=== PATIENT | male | born 1945 | race Caucasian/White ===

== ENCOUNTER → 2020-09-04 | Emergency (ER) | payer MEDICARE ==
[~2020-09-04] VITALS: Ht 175.3 cm; Wt 98.7 kg
[~2020-09-04] MED LIST: AMIO200T61 PO; APIX5TAB3 PO; BUDE0.5A11 NEB; BUSP5TAB3 PO; CHOL20004 PO; CLON-528 PO; FLO0.4C PO; FURO-150 PO; HYDR-3965 PO; LEVO50TA8 PO; METH5TAB PO; METH5TAB2 PO; RIVA15TA PO; RIVA20TA PO; enoxaparin 100mg/ml syringe SUBCUT ONE; iohexol 350MG/ML 100ml bottle IV ONE; morphine 4 MG/ML inj SYRINge IV ONE; ondansetron/PF 4mg/2ml inj IV ONE
[2020-09-04 14:48] LABS: BASOPHILS # (AUTO) 0.1 X10'3 (0-0.2); BASOPHILS % (AUTO) 0.7 % (0-1); EOSINOPHILS % (AUTO) 0.5 % (0-6); HEMATOCRIT 41.7 % (42.0-52.0); HEMOGLOBIN 13.5 g/dl (14.0-17.9); LYMPHOCYTES # (AUTO) 1.7 X10'3 (1.1-4.8); LYMPHOCYTES % (AUTO) 18.3 % (21-51); MEAN CORPUSCULAR HEMOGLOBIN 28.5 PG (27.0-31.0); MEAN CORPUSCULAR HGB CONC 32.3 g/dL (33.0-36.5); MEAN CORPUSCULAR VOLUME 88.1 FL (78-98); MEAN PLATELET VOLUME 7.8 FL (7.4-10.4); MONOCYTES # (AUTO) 0.6 X10'3 (0-0.9); MONOCYTES % (AUTO) 6.2 % (2-12); NEUTROPHILS # (AUTO) 6.9 X10'3 (1.8-7.7); NEUTROPHILS % (AUTO) 74.3 % (42-75); PLATELET COUNT 253 X10'3 (140-440); RED BLOOD COUNT 4.73 X10'6 (4.70-6.10); RED CELL DISTRIBUTION WIDTH 16.2 % (11.5-14.5); WHITE BLOOD COUNT 9.2 X10'3 (4.5-11.0)
[2020-09-04 14:57] LABS: PARTIAL THROMBOPLASTIN TIME 25 SECONDS (22-32)
[2020-09-04 15:06] LABS: ALANINE AMINOTRANSFERASE 23 U/L (12-78); ALBUMIN 3.4 G/DL (3.4-5.0); ALBUMIN/GLOBULIN RATIO 0.9 (1.1-1.5); ALKALINE PHOSPHATASE 83 IU/L (46-116); ANION GAP 11 (8-16); ASPARTATE AMINO TRANSFERASE 19 U/L (10-37); BILIRUBIN,TOTAL 0.3 MG/DL (0.1-1.0); BLOOD UREA NITROGEN 17 MG/DL (7-18); BUN/CREATININE RATIO 16.7 (5.4-32.0); CALCIUM 8.8 MG/DL (8.5-10.1); CHLORIDE 105 MMOL/L (99-107); CREATININE 1.02 MG/DL (0.60-1.10); GLUCOSE 132 MG/DL (70-104); POTASSIUM 4.3 MMOL/L (3.5-5.1); SODIUM 141 MMOL/L (135-145); TOTAL CARBON DIOXIDE 24.9 MMOL/L (24-32); TOTAL PROTEIN 7.1 G/DL (6.4-8.2); eGFR 71 ML/MIN
[2020-09-04 15:08] LABS: MAGNESIUM 1.8 MG/DL (1.5-2.4)
[2020-09-04 16:12] VITALS: BP 164/96
--- NOTE | 2020-09-04 17:03 | NUR ---
pt getting anxious due to the fact he can't get a hold of his son.
== END | disposition home or self-care (01) ==
LOC: ER 20:43
DX: R07.89 Other chest pain (principal); G89.29 Other chronic pain; Z95.0 Presence of cardiac pacemaker; Z86.711 Personal history of pulmonary embolism; Z79.899 Other long term (current) drug therapy; Z76.0 Encounter for issue of repeat prescription
CPT/HCPCS: 36415; 71045; 71275; 80053; 83735; 83880; 84484; 85025; 85610; 85730; 93005; 96372; 96374; 96375; 96376; 99285; J2270; J2405; Q9967; J1650

== ENCOUNTER 2020-09-07 11:33 | Emergency (ER) | payer MEDICARE ==
[~2020-09-07] VITALS: Ht 175.3 cm; Wt 98.7 kg
[~2020-09-07 11:33] MED LIST changes: -FLO0.4C PO; -METH5TAB PO; -METH5TAB2 PO; -RIVA15TA PO; -enoxaparin 100mg/ml syringe SUBCUT ONE; -iohexol 350MG/ML 100ml bottle IV ONE; -morphine 4 MG/ML inj SYRINge IV ONE; -ondansetron/PF 4mg/2ml inj IV ONE
[2020-09-07 12:37] LABS: BASOPHILS # (AUTO) 0.1 X10'3 (0-0.2); BASOPHILS % (AUTO) 0.6 % (0-1); EOSINOPHILS % (AUTO) 0.2 % (0-6); HEMATOCRIT 40.8 % (42.0-52.0); HEMOGLOBIN 13.1 g/dl (14.0-17.9); LYMPHOCYTES # (AUTO) 1.5 X10'3 (1.1-4.8); LYMPHOCYTES % (AUTO) 12.9 % (21-51); MEAN CORPUSCULAR HEMOGLOBIN 28.5 PG (27.0-31.0); MEAN CORPUSCULAR VOLUME 89.1 FL (78-98); MEAN PLATELET VOLUME 7.9 FL (7.4-10.4); MONOCYTES # (AUTO) 0.6 X10'3 (0-0.9); MONOCYTES % (AUTO) 5.4 % (2-12); NEUTROPHILS # (AUTO) 9.2 X10'3 (1.8-7.7); NEUTROPHILS % (AUTO) 80.9 % (42-75); PLATELET COUNT 280 X10'3 (140-440); RED BLOOD COUNT 4.58 X10'6 (4.70-6.10); RED CELL DISTRIBUTION WIDTH 16.3 % (11.5-14.5); WHITE BLOOD COUNT 11.4 X10'3 (4.5-11.0)
[2020-09-07 12:50] LABS: ALANINE AMINOTRANSFERASE 23 U/L (12-78); ALBUMIN 3.6 G/DL (3.4-5.0); ALKALINE PHOSPHATASE 89 IU/L (46-116); ANION GAP 15 (8-16); ASPARTATE AMINO TRANSFERASE 26 U/L (10-37); BILIRUBIN,TOTAL 0.9 MG/DL (0.1-1.0); BLOOD UREA NITROGEN 11 MG/DL (7-18); BUN/CREATININE RATIO 10.9 (5.4-32.0); CALCIUM 8.8 MG/DL (8.5-10.1); CHLORIDE 101 MMOL/L (99-107); CREATININE 1.01 MG/DL (0.60-1.10); GLUCOSE 190 MG/DL (70-104); POTASSIUM 4.1 MMOL/L (3.5-5.1); SODIUM 140 MMOL/L (135-145); TOTAL CARBON DIOXIDE 23.6 MMOL/L (24-32); TOTAL PROTEIN 7.3 G/DL (6.4-8.2); eGFR 72 ML/MIN
[2020-09-07] MEDS ORDERED: LORazepam 2 mg/ml vial IV ONE (14:10)
[2020-09-07] MEDS ORDERED: clonazePAM 1mg tablet PO ONE (15:55)
[2020-09-07 16:33] VITALS: BP 175/89
[2020-09-08] MEDS ORDERED: METH5TAB2 PO (11:37)
[2020-09-08] MEDS ORDERED: FLO0.4C PO (11:37)
[2020-09-11] MEDS ORDERED: CLON-528 PO (09:26)
[2020-09-11] MEDS ORDERED: LISI2.5T2 PO (09:26)
[2020-09-11] MEDS ORDERED: COR3.125T PO (09:26)
== END 2020-09-07 16:35 | disposition home or self-care (01) ==
LOC: ER 11:38
DX: F13.230 Sedative, hypnotic or anxiolytic dependence with withdrawal, uncomplicated (principal); R07.89 Other chest pain; F41.9 Anxiety disorder, unspecified; G89.29 Other chronic pain; Z86.711 Personal history of pulmonary embolism; Z95.5 Presence of coronary angioplasty implant and graft; Z79.899 Other long term (current) drug therapy
CPT/HCPCS: 36415; 71045; 80053; 83880; 84484; 85025; 93005; 96374; 99285; J2060

== ENCOUNTER 2020-09-15 14:36 | Emergency (ER) | payer MEDICARE ==
[~2020-09-15] VITALS: Ht 175.3 cm; Wt 100.0 kg
[~2020-09-15 14:36] MED LIST changes: +COR3.125T PO; +FLO0.4C PO; +LISI2.5T2 PO; +METH5TAB2 PO; -RIVA20TA PO
[2020-09-15 14:44] VITALS: BP 145/83
[2020-09-15] MEDS ORDERED: ondansetron/PF 4mg/2ml inj IM ONE (15:30)
[2020-09-15] MEDS ORDERED: morphine 4 MG/ML inj SYRINge IM ONE (15:30)
[2020-09-15] MEDS ORDERED: LORazepam 2 mg/ml vial IM ONE (15:45)
[2020-09-15] MEDS ORDERED: ORPH100T2 PO (16:13)
[2020-09-15] MEDS ORDERED: LORazepam 1 MG tablet PO ONE (16:20)
[2020-09-15] MEDS ORDERED: LORA-269 PO (16:57)
== END 2020-09-15 17:14 | disposition home or self-care (01) ==
LOC: ER 14:37
DX: M54.5 Low back pain (principal); G89.29 Other chronic pain; I48.91 Unspecified atrial fibrillation; I50.9 Heart failure, unspecified; J44.9 Chronic obstructive pulmonary disease, unspecified; F41.9 Anxiety disorder, unspecified; Z86.711 Personal history of pulmonary embolism; Z95.0 Presence of cardiac pacemaker; Z79.899 Other long term (current) drug therapy
CPT/HCPCS: 93005; 96372; 99284; J2270; J2405

== ENCOUNTER 2020-09-21 11:48 | Inpatient (IN) | payer MEDICARE ==
[~2020-09-21] VITALS: Ht 175.3 cm; Wt 95.5 kg
[~2020-09-21 11:48] MED LIST changes: +LORA-269 PO; +ORPH100T2 PO
[2020-09-21] MEDS ORDERED: thiamine 100mg/ml 2ml inj. IV ONE (11:55)
[2020-09-21] MEDS ORDERED: proCHLORperazine 10 MG/2 ml inj IV ONE (11:55)
[2020-09-21] MEDS ORDERED: folic acid 1mg/0.2ml inj IV ONE (11:55)
[2020-09-21] MEDS ORDERED: LORazepam 2 mg/ml vial IV ONE ×2 (11:55→15:50)
[2020-09-21] MEDS ORDERED: normal saline 1000ML IV soln IVB ONE (11:55)
--- NOTE | 2020-09-21 12:14 | NUR ---
2-PER FULL PERICARE W/ BARRIER CREAM APPLICATION AND LINEN CHANGE PROVIDED.
[2020-09-21 12:30] LABS: BASOPHILS % (AUTO) 0.3 % (0-1); EOSINOPHILS % (AUTO) 0.1 % (0-6); HEMATOCRIT 41.6 % (42.0-52.0); HEMOGLOBIN 13.4 g/dl (14.0-17.9); LYMPHOCYTES # (AUTO) 1.1 X10'3 (1.1-4.8); LYMPHOCYTES % (AUTO) 9.8 % (21-51); MEAN CORPUSCULAR HEMOGLOBIN 28.9 PG (27.0-31.0); MEAN CORPUSCULAR HGB CONC 32.1 g/dL (33.0-36.5); MEAN PLATELET VOLUME 7.7 FL (7.4-10.4); MONOCYTES # (AUTO) 0.7 X10'3 (0-0.9); NEUTROPHILS # (AUTO) 9.3 X10'3 (1.8-7.7); NEUTROPHILS % (AUTO) 83.8 % (42-75); PLATELET COUNT 255 X10'3 (140-440); RED BLOOD COUNT 4.63 X10'6 (4.70-6.10); RED CELL DISTRIBUTION WIDTH 16.3 % (11.5-14.5); WHITE BLOOD COUNT 11.1 X10'3 (4.5-11.0)
[2020-09-21 12:47] LABS: ALANINE AMINOTRANSFERASE 19 U/L (12-78); ALBUMIN 3.1 G/DL (3.4-5.0); ALBUMIN/GLOBULIN RATIO 0.9 (1.1-1.5); ALKALINE PHOSPHATASE 74 IU/L (46-116); ANION GAP 17 (8-16); ASPARTATE AMINO TRANSFERASE 31 U/L (10-37); BLOOD UREA NITROGEN 27 MG/DL (7-18); CALCIUM 8.1 MG/DL (8.5-10.1); CHLORIDE 96 MMOL/L (99-107); ETHANOL 0.091 GM/DL (0.0-0.010); GLUCOSE 162 MG/DL (70-104); SODIUM 133 MMOL/L (135-145); TOTAL CARBON DIOXIDE 20.3 MMOL/L (24-32); TOTAL PROTEIN 6.5 G/DL (6.4-8.2)
--- NOTE | 2020-09-21 12:52 | NUR ---
2 PERSON PERICARE & LINEN CHANGE PROVIDED (2ND X IN ~30 MIN). BRUNO ROMERO INFORMED
[2020-09-21 13:07] LABS: BUN/CREATININE RATIO 27.8 (5.4-32.0); CREATININE 0.97 MG/DL (0.60-1.10); eGFR 76 ML/MIN
[2020-09-21] MEDS ORDERED: albuterol 2.5 MG/3 ML nebule CONTNEB PRN (13:10)
[2020-09-21] MEDS ORDERED: pantoprazole IV 80 MG in normal saline 100ml IV soln 100 ML IV ONE ×2 (14:45→14:50)
[2020-09-21] MEDS ORDERED: pantoprazole 40MG/NS 100ML BAG 100 ML IV ONE ×2 (14:46→15:00)
[2020-09-21] MEDS ORDERED: CefTRIAXone 2gm/D5W 50ml BAG 50 ML IV ONE (14:50)
[2020-09-21 15:46] LABS: LIPASE < 50 U/L (73-393)
--- NOTE | 2020-09-21 15:52 | NUR ---
yanira Curtis, called to say electrolyte panel was run @ 1221 when K level came back 4.6, different from the previous value of 6.0. BRUNO Loja notified, she will update BRUNO Yates when he is off the phone. The K of 6.0 had not yet been addressed.
[2020-09-21 15:53] LABS: POTASSIUM 4.6 MMOL/L (3.5-5.1)
[2020-09-21] MEDS ORDERED: dextrose 50%-water 50ml dispensing syringe IV PRN (16:00)
[2020-09-21] MEDS ORDERED: magnesium Cl slow-release 64mg tablet PO PRN (16:00)
[2020-09-21] MEDS ORDERED: magnesium 4gm in 100ml NS 100 ML IV PRN (16:00)
[2020-09-21] MEDS ORDERED: magnesium hydroxide 30ml (MOM) UD suspension PO PRN (16:00)
[2020-09-21] MEDS ORDERED: magnesium 2GM in 50ml NS 50 ML IV PRN (16:00)
[2020-09-21] MEDS ORDERED: potassium Cl 40MEQ/1/2NS 520ml 520 ML IV PRN ×2 (16:00)
[2020-09-21] MEDS ORDERED: diphenhydrAMINE 25mg capsule PO PRN (16:00)
[2020-09-21] MEDS ORDERED: bisacodyl 10mg suppository rectal RC PRN (16:00)
[2020-09-21] MEDS ORDERED: potassium Cl 20 mEq SR tablet PO PRN ×2 (16:00)
[2020-09-21] MEDS: pantoprazole 40MG/NS 100ML BAG 100 ML IV SCH ×2 (16:00→21:05)
[2020-09-21] MEDS ORDERED: acetaminophen 650mg rectal suppository RC PRN (16:00)
[2020-09-21] MEDS ORDERED: normal saline 1000ml 1,000 ML IV SCH (16:00)
[2020-09-21] MEDS ORDERED: acetaminophen 325mg tablet PO PRN (16:00)
[2020-09-21] MEDS ORDERED: diphenhydrAMINE 50 mg/ml inj IV PRN (16:00)
[2020-09-21] MEDS ORDERED: mag hydrox/Alum hydrox/simeth 30ml oral suspension PO PRN (16:00)
[2020-09-21] MEDS ORDERED: ondansetron/PF 4mg/2ml inj IV PRN (16:00)
[2020-09-21] MEDS ORDERED: pantoprazole 40MG/NS 100ML BAG 100 ML IV SCH (16:00)
[2020-09-21] MEDS ORDERED: haloperidol 5mg tablet PO PRN (16:00)
[2020-09-21] MEDS ORDERED: haloperidol lactate 5mg/ml inj IM PRN (16:00)
[2020-09-21 16:13] LABS: HEMATOCRIT 39.7 % (42.0-52.0); HEMOGLOBIN 12.9 g/dl (14.0-17.9); MEAN CORPUSCULAR HEMOGLOBIN 29.1 PG (27.0-31.0); MEAN CORPUSCULAR HGB CONC 32.4 g/dL (33.0-36.5); MEAN CORPUSCULAR VOLUME 89.8 FL (78-98); MEAN PLATELET VOLUME 7.6 FL (7.4-10.4); PLATELET COUNT 217 X10'3 (140-440); RED BLOOD COUNT 4.41 X10'6 (4.70-6.10); RED CELL DISTRIBUTION WIDTH 16.5 % (11.5-14.5); WHITE BLOOD COUNT 10.7 X10'3 (4.5-11.0)
[2020-09-21 16:24] LABS: OCCULT BLOOD STOOL POSITIVE (Neg)
[2020-09-21] MEDS ORDERED: APIX5TAB3 PO (16:50)
[2020-09-21] MEDS ORDERED: ORPH100T2 PO (16:53)
[2020-09-21] MEDS ORDERED: CARV3.122 PO (16:53)
[2020-09-21] MEDS ORDERED: CLON0.5T23 PO (16:53)
--- NOTE | 2020-09-21 17:43 | NUR ---
Pt gave verbal consent to update son Narayan on his status which was done. Per Narayan, he no longer lives in [facility]. He and his father are staying at the [facility] on [facility]. Cell number ([phone]) unchanged. Registration notified of address differences.
--- NOTE | 2020-09-21 18:40 | NUR ---
Patient in ER I have received report from Lali HUTCHINS and had the opportunity to ask questions and assume patient care.
[2020-09-21 18:55] VITALS: BP 142/76
[2020-09-21] MEDS: K and/or MAG REPLACEMENT MC SCH (20:00)
[2020-09-21] MEDS: OLANZAPINE 5 MG TABLET PO SCH (21:04)
[2020-09-21] MEDS: carVEDilol 3.125mg tablet PO SCH (21:04)
[2020-09-21] MEDS: methadone 5mg tablet PO SCH (21:05)
[2020-09-21] MEDS: busPIRone 5mg tablet PO SCH (21:05)
[2020-09-21 22:00] VITALS: BP 151/75
[2020-09-21] MEDS: LORazepam 2 mg/ml vial IV PRN (22:13)
[2020-09-22] VITALS (9 sets, daily range): BP systolic 133–170; BP diastolic 60–99
[2020-09-22] MEDS: pantoprazole 40MG/NS 100ML BAG 100 ML IV SCH ×6 (00:57→23:22)
[2020-09-22] MEDS: LORazepam 2 mg/ml vial IV PRN ×4 (00:57→21:38)
[2020-09-22] MEDS: methadone 5mg tablet PO SCH ×4 (02:37→20:43)
--- NOTE | 2020-09-22 06:41 | NUR ---
Problems reprioritized. Patient report given, questions answered & plan of care reviewed with Nicole HUTCHINS.
[2020-09-22] MEDS: CefTRIAXone/D5W-Rocephin 1gm 50 ML IV SCH (07:53)
[2020-09-22] MEDS: busPIRone 5mg tablet PO SCH ×3 (07:54→20:43)
[2020-09-22] MEDS: amiodarone 100mg tablet PO SCH (07:55)
[2020-09-22] MEDS: folic acid 1mg tablet PO SCH (07:55)
[2020-09-22] MEDS: levoTHYROXINE 25mcg tablet PO SCH (07:56)
[2020-09-22] MEDS: OLANZAPINE 5 MG TABLET PO SCH ×2 (07:56→20:53)
[2020-09-22] MEDS: furosemide 20MG tablet PO SCH (07:56)
[2020-09-22] MEDS: multivitamins, therapeutics tablet PO SCH (07:57)
[2020-09-22] MEDS: thiamine 100mg tablet PO SCH (07:57)
[2020-09-22] MEDS: lisinopril 2.5mg tablet PO SCH (07:57)
[2020-09-22] MEDS: carVEDilol 3.125mg tablet PO SCH ×2 (07:58→20:43)
[2020-09-22] MEDS: K and/or MAG REPLACEMENT MC SCH ×2 (08:00→20:00)
[2020-09-22 08:31] LABS: HEMATOCRIT 36.8 % (42.0-52.0); HEMOGLOBIN 11.9 g/dl (14.0-17.9); MEAN CORPUSCULAR HEMOGLOBIN 29.2 PG (27.0-31.0); MEAN CORPUSCULAR HGB CONC 32.2 g/dL (33.0-36.5); MEAN CORPUSCULAR VOLUME 90.7 FL (78-98); MEAN PLATELET VOLUME 7.5 FL (7.4-10.4); PLATELET COUNT 209 X10'3 (140-440); RED BLOOD COUNT 4.06 X10'6 (4.70-6.10); RED CELL DISTRIBUTION WIDTH 16.3 % (11.5-14.5); WHITE BLOOD COUNT 8.8 X10'3 (4.5-11.0)
[2020-09-22 08:52] LABS: PARTIAL THROMBOPLASTIN TIME 39 SECONDS (22-32)
[2020-09-22 08:54] LABS: ANION GAP 10 (8-16); BLOOD UREA NITROGEN 20 MG/DL (7-18); BUN/CREATININE RATIO 26.7 (5.4-32.0); CALCIUM 8.2 MG/DL (8.5-10.1); CHLORIDE 104 MMOL/L (99-107); CREATININE 0.75 MG/DL (0.60-1.10); GLUCOSE 107 MG/DL (70-104); POTASSIUM 3.8 MMOL/L (3.5-5.1); SODIUM 139 MMOL/L (135-145); eGFR > 90 ML/MIN
[2020-09-22] MEDS ORDERED: methylPREDNISolone sod succ 125mg/2ml vial IV ONE (11:05)
[2020-09-22] MEDS ORDERED: ipratropium/albuterol 3ml nebule NEB PRN (11:05)
--- NOTE | 2020-09-22 12:35 | NUR ---
patient seen by Dr akers. IS ordered and given patient up to 1000mls volume . c/o anxiety and feeling " shaky" medicated with Ativan x1 Awaiting EGD. No sign of rectal bleeding.
[2020-09-22] MEDS: methylPREDNISolone sod succ 125mg/2ml vial IV SCH ×2 (14:00→20:55)
[2020-09-22] MEDS ORDERED: fentaNYL/PF 50MCG/1 ML 2ML syringe ONE (14:48)
[2020-09-22] MEDS ORDERED: MIDAZolam 1 MG/ML 5ML VIAL ONE (14:48)
[2020-09-22] MEDS ORDERED: LIDOcaine Viscous 15ml cup ONE (14:48)
[2020-09-22] MEDS: ipratropium/albuterol 3ml nebule NEB SCH ×3 (15:00→23:44)
[2020-09-22] MEDS ORDERED: sertraline 50mg tablet PO ONE ×2 (17:05→17:40)
--- NOTE | 2020-09-22 18:38 | NUR ---
patient went for EGD see notes ,given ativan for anxiety . patient became very confused following this pulled apart tubing and took off tele and gown. Son was present during this time. Report given to Jessika HUTCHINS
[2020-09-23] MEDS: LORazepam 2 mg/ml vial IV PRN ×3 (00:17→12:36)
[2020-09-23] MEDS: methylPREDNISolone sod succ 125mg/2ml vial IV SCH ×4 (01:59→21:13)
[2020-09-23] MEDS: methadone 5mg tablet PO SCH ×4 (01:59→21:50)
[2020-09-23] MEDS: ipratropium/albuterol 3ml nebule NEB SCH ×6 (03:43→23:32)
[2020-09-23] MEDS: pantoprazole 40MG/NS 100ML BAG 100 ML IV SCH ×2 (04:47→09:54)
--- NOTE | 2020-09-23 06:45 | NUR ---
Patient in room ORTHO 4011A. I have received report from CUONG GOMEZ and had the opportunity to ask questions and assume patient care.
[2020-09-23] MEDS: K and/or MAG REPLACEMENT MC SCH ×2 (08:00→20:00)
[2020-09-23] MEDS ORDERED: sertraline 50mg tablet PO SCH (08:00)
[2020-09-23 09:11] LABS: PARTIAL THROMBOPLASTIN TIME 32 SECONDS (22-32)
[2020-09-23 09:33] LABS: HEMATOCRIT 40.5 % (42.0-52.0); HEMOGLOBIN 13.1 g/dl (14.0-17.9); MEAN CORPUSCULAR HEMOGLOBIN 28.9 PG (27.0-31.0); MEAN CORPUSCULAR HGB CONC 32.2 g/dL (33.0-36.5); MEAN CORPUSCULAR VOLUME 89.8 FL (78-98); MEAN PLATELET VOLUME 7.6 FL (7.4-10.4); PLATELET COUNT 224 X10'3 (140-440); RED BLOOD COUNT 4.51 X10'6 (4.70-6.10); RED CELL DISTRIBUTION WIDTH 16.5 % (11.5-14.5); WHITE BLOOD COUNT 7.8 X10'3 (4.5-11.0)
[2020-09-23 10:00] VITALS: BP 154/84
[2020-09-23 10:05] LABS: ALBUMIN 3.4 G/DL (3.4-5.0); ANION GAP 11 (8-16); BLOOD UREA NITROGEN 18 MG/DL (7-18); BUN/CREATININE RATIO 23.4 (5.4-32.0); CALCIUM 8.9 MG/DL (8.5-10.1); CHLORIDE 100 MMOL/L (99-107); CREATININE 0.77 MG/DL (0.60-1.10); GLUCOSE 212 MG/DL (70-104); POTASSIUM 3.7 MMOL/L (3.5-5.1); SODIUM 135 MMOL/L (135-145); TOTAL CARBON DIOXIDE 23.8 MMOL/L (24-32); eGFR > 90 ML/MIN
[2020-09-23] MEDS: folic acid 1mg tablet PO SCH (11:03)
[2020-09-23] MEDS: multivitamins, therapeutics tablet PO SCH (11:03)
[2020-09-23] MEDS: thiamine 100mg tablet PO SCH (11:04)
[2020-09-23] MEDS: OLANZAPINE 5 MG TABLET PO SCH ×2 (11:05→21:50)
[2020-09-23] MEDS: busPIRone 5mg tablet PO SCH ×3 (11:05→21:50)
[2020-09-23] MEDS: amiodarone 100mg tablet PO SCH (11:07)
[2020-09-23] MEDS: lisinopril 2.5mg tablet PO SCH (11:09)
[2020-09-23] MEDS: levoTHYROXINE 25mcg tablet PO SCH (11:10)
[2020-09-23] MEDS: furosemide 20MG tablet PO SCH (11:11)
[2020-09-23] MEDS: carVEDilol 3.125mg tablet PO SCH ×2 (11:12→21:46)
[2020-09-23] MEDS: CefTRIAXone/D5W-Rocephin 1gm 50 ML IV SCH (11:13)
--- NOTE | 2020-09-23 12:45 | NUR ---
Patient in room ORTHO 4011. I have received report from Arlene HUTCHINS and had the opportunity to ask questions and assume patient care.
[2020-09-23 13:15] VITALS: BP 142/71
[2020-09-23] MEDS ORDERED: methylPREDNISolone sod succ 125mg/2ml vial IV ONE (14:35)
[2020-09-23] MEDS ORDERED: LORazepam 2 mg/ml vial IV PRN (16:00)
[2020-09-23] MEDS ORDERED: LORazepam 1 MG tablet PO PRN (16:00)
[2020-09-23 18:00] VITALS: BP 146/84
--- NOTE | 2020-09-23 19:18 | NUR ---
Problems reprioritized. Patient report given, questions answered & plan of care reviewed with CUONG SANDOVAL.
--- NOTE | 2020-09-23 21:42 | NUR ---
PAGER ID: [phone] MESSAGE: this is lisa at [phone] - patient in 4011A unable to take night meds. please advise.
[2020-09-23] MEDS: pantoprazole 40mg Tablet.DR PO SCH (21:46)
[2020-09-23] MEDS: lactobacillus rhamnosus 10,000 MMU CELLS/CAPSULE PO SCH (21:50)
--- NOTE | 2020-09-23 21:59 | NUR ---
patient awoke. bed changed and patient alert. medications administered.
[2020-09-23 22:00] VITALS: BP 164/81
[2020-09-24] MEDS: methadone 5mg tablet PO SCH ×5 (02:00→20:48)
[2020-09-24] MEDS: methylPREDNISolone sod succ 125mg/2ml vial IV SCH ×4 (02:48→20:47)
--- NOTE | 2020-09-24 02:51 | NUR ---
patient sleeping so soundly, and was unable to rouse, that I held methadone. RR was 9-10 breaths per min. MD notified.
[2020-09-24] MEDS: ipratropium/albuterol 3ml nebule NEB SCH ×6 (03:30→22:56)
--- NOTE | 2020-09-24 06:08 | NUR ---
Problems reprioritized. Patient report given, questions answered & plan of care reviewed with CUONG Juares.
[2020-09-24 06:30] VITALS: BP 128/66
--- NOTE | 2020-09-24 06:54 | NUR ---
Notified Dr Morales [id number] that Mr Hernandez has an order that needs to be clarified Dr Singh stated in his notes that he would stop his Zoloft but this order still remain. Awaiting clarification
[2020-09-24] MEDS: K and/or MAG REPLACEMENT MC SCH ×2 (08:00→20:00)
[2020-09-24 08:12] LABS: HEMATOCRIT 39.1 % (42.0-52.0); HEMOGLOBIN 12.6 g/dl (14.0-17.9); MEAN CORPUSCULAR HEMOGLOBIN 29.2 PG (27.0-31.0); MEAN CORPUSCULAR HGB CONC 32.3 g/dL (33.0-36.5); MEAN CORPUSCULAR VOLUME 90.6 FL (78-98); MEAN PLATELET VOLUME 7.7 FL (7.4-10.4); PLATELET COUNT 211 X10'3 (140-440); RED BLOOD COUNT 4.32 X10'6 (4.70-6.10); RED CELL DISTRIBUTION WIDTH 16.6 % (11.5-14.5); WHITE BLOOD COUNT 9.1 X10'3 (4.5-11.0)
[2020-09-24 08:21] LABS: PARTIAL THROMBOPLASTIN TIME 26 SECONDS (22-32)
[2020-09-24] MEDS: lactobacillus rhamnosus 10,000 MMU CELLS/CAPSULE PO SCH ×2 (08:26→20:48)
[2020-09-24] MEDS: folic acid 1mg tablet PO SCH (08:26)
[2020-09-24] MEDS: multivitamins, therapeutics tablet PO SCH (08:26)
[2020-09-24] MEDS: OLANZAPINE 5 MG TABLET PO SCH ×2 (08:26→20:48)
[2020-09-24] MEDS: levoTHYROXINE 25mcg tablet PO SCH (08:26)
[2020-09-24] MEDS: thiamine 100mg tablet PO SCH (08:27)
[2020-09-24] MEDS: busPIRone 5mg tablet PO SCH ×3 (08:27→20:47)
[2020-09-24] MEDS: amiodarone 100mg tablet PO SCH (08:27)
[2020-09-24] MEDS: furosemide 20MG tablet PO SCH (08:27)
[2020-09-24] MEDS: pantoprazole 40mg Tablet.DR PO SCH ×2 (08:28→20:48)
[2020-09-24] MEDS: duloxetine 30mg CAPSULE.DR PO SCH (08:28)
[2020-09-24] MEDS: lisinopril 2.5mg tablet PO SCH (08:36)
[2020-09-24] MEDS: carVEDilol 3.125mg tablet PO SCH ×2 (08:36→20:48)
[2020-09-24 08:37] LABS: ALBUMIN 3.2 G/DL (3.4-5.0); ANION GAP 8 (8-16); BLOOD UREA NITROGEN 22 MG/DL (7-18); BUN/CREATININE RATIO 23.7 (5.4-32.0); CALCIUM 8.8 MG/DL (8.5-10.1); CHLORIDE 104 MMOL/L (99-107); CREATININE 0.93 MG/DL (0.60-1.10); GLUCOSE 190 MG/DL (70-104); MAGNESIUM 2.2 MG/DL (1.5-2.4); POTASSIUM 3.9 MMOL/L (3.5-5.1); SODIUM 140 MMOL/L (135-145); TOTAL CARBON DIOXIDE 28.1 MMOL/L (24-32); eGFR 79 ML/MIN
[2020-09-24] MEDS: CefTRIAXone/D5W-Rocephin 1gm 50 ML IV SCH (08:37)
[2020-09-24] MEDS: LORazepam 0.5 MG tablet PO PRN ×2 (12:31→17:37)
[2020-09-24 18:00] VITALS: BP 129/78
[2020-09-24 22:00] VITALS: BP 144/74
[2020-09-25] MEDS: LORazepam 0.5 MG tablet PO PRN ×4 (00:48→18:04)
[2020-09-25] MEDS: methadone 5mg tablet PO SCH ×4 (01:35→21:12)
[2020-09-25] MEDS: methylPREDNISolone sod succ 125mg/2ml vial IV SCH ×3 (01:35→13:50)
[2020-09-25] MEDS: ipratropium/albuterol 3ml nebule NEB SCH ×6 (02:49→23:00)
[2020-09-25 06:00] VITALS: BP 124/76
--- NOTE | 2020-09-25 06:33 | NUR ---
Problems reprioritized. Patient report given, questions answered & plan of care reviewed with CUONG Baldwin.
--- NOTE | 2020-09-25 06:34 | NUR ---
Patient in room ORTHO 4011. I have received report from Marta HUTCHINS and had the opportunity to ask questions and assume patient care.
--- NOTE | 2020-09-25 07:19 | NUR ---
Paged Dr. Morales PAGER ID: [phone] MESSAGE: Ortho/Neuro Jacquelyn HUTCHINS ext [phone]. RE: Cabrera Hernandez. Patient's blood sugar 211mg/dl this am and has been high prior to this. A1C on 09/08/20 was 6.7. Can we start hyper/hypoglycemia protocol?
[2020-09-25] MEDS: K and/or MAG REPLACEMENT MC SCH ×2 (08:00→20:00)
[2020-09-25] MEDS: CefTRIAXone/D5W-Rocephin 1gm 50 ML IV SCH (08:12)
[2020-09-25] MEDS: levoTHYROXINE 25mcg tablet PO SCH (08:13)
[2020-09-25] MEDS: multivitamins, therapeutics tablet PO SCH (08:13)
[2020-09-25] MEDS: folic acid 1mg tablet PO SCH (08:13)
[2020-09-25] MEDS: lactobacillus rhamnosus 10,000 MMU CELLS/CAPSULE PO SCH ×2 (08:13→21:12)
[2020-09-25] MEDS: OLANZAPINE 5 MG TABLET PO SCH ×2 (08:13→21:12)
[2020-09-25] MEDS: pantoprazole 40mg Tablet.DR PO SCH ×2 (08:14→21:12)
[2020-09-25] MEDS: duloxetine 30mg CAPSULE.DR PO SCH (08:14)
[2020-09-25] MEDS: busPIRone 5mg tablet PO SCH ×3 (08:14→21:12)
[2020-09-25 08:15] LABS: BASOPHILS % (AUTO) 0 % (0-1); EOSINOPHILS % (AUTO) 0 % (0-6); HEMATOCRIT 40.7 % (42.0-52.0); LYMPHOCYTES # (AUTO) 0.6 X10'3 (1.1-4.8); LYMPHOCYTES % (AUTO) 4.7 % (21-51); MEAN CORPUSCULAR HEMOGLOBIN 29.2 PG (27.0-31.0); MEAN CORPUSCULAR HGB CONC 31.8 g/dL (33.0-36.5); MEAN CORPUSCULAR VOLUME 91.6 FL (78-98); MEAN PLATELET VOLUME 8.1 FL (7.4-10.4); MONOCYTES # (AUTO) 0.2 X10'3 (0-0.9); MONOCYTES % (AUTO) 1.9 % (2-12); NEUTROPHILS # (AUTO) 11.9 X10'3 (1.8-7.7); NEUTROPHILS % (AUTO) 93.4 % (42-75); PLATELET COUNT 215 X10'3 (140-440); RED BLOOD COUNT 4.44 X10'6 (4.70-6.10); RED CELL DISTRIBUTION WIDTH 16.7 % (11.5-14.5); WHITE BLOOD COUNT 12.8 X10'3 (4.5-11.0)
[2020-09-25] MEDS: thiamine 100mg tablet PO SCH (08:15)
[2020-09-25] MEDS: amiodarone 100mg tablet PO SCH (08:19)
[2020-09-25 08:20] VITALS: BP 149/81
[2020-09-25] MEDS: lisinopril 2.5mg tablet PO SCH (08:20)
[2020-09-25] MEDS: carVEDilol 3.125mg tablet PO SCH ×2 (08:20→21:12)
[2020-09-25] MEDS: furosemide 20MG tablet PO SCH (08:20)
[2020-09-25 08:47] LABS: ALBUMIN 3.3 G/DL (3.4-5.0); ANION GAP 9 (8-16); BLOOD UREA NITROGEN 30 MG/DL (7-18); BUN/CREATININE RATIO 29.4 (5.4-32.0); CALCIUM 8.9 MG/DL (8.5-10.1); CHLORIDE 102 MMOL/L (99-107); CREATININE 1.02 MG/DL (0.60-1.10); GLUCOSE 214 MG/DL (70-104); MAGNESIUM 2.2 MG/DL (1.5-2.4); POTASSIUM 3.7 MMOL/L (3.5-5.1); SODIUM 141 MMOL/L (135-145); TOTAL CARBON DIOXIDE 29.8 MMOL/L (24-32); eGFR 71 ML/MIN
[2020-09-25 10:00] VITALS: BP 129/74
--- NOTE | 2020-09-25 13:16 | NUR ---
Awaiting for Covid test result at this time. I had called lab about this they gave me 15 minutes for the result. I told lab that we need to know the result the sooner the better so we can get CT scan done next with appropriate precaution in case its positive. Addendum: 09/25/20 at 1344 by Jacquelyn Mina RN Correction: charted the above note to the wrong patient chart, please disregard
--- NOTE | 2020-09-25 14:58 | NUR ---
Problems reprioritized. Patient report given, questions answered & plan of care reviewed with Eusebia HUTCHINS.
[2020-09-25] MEDS ORDERED: dextrose ORAL solution 15 GM/59 ML bottle PO PRN ×2 (15:15)
[2020-09-25] MEDS ORDERED: MESSAGE TO PHARMACY PO ONE (15:15)
[2020-09-25] MEDS ORDERED: glucagon, human recombinant 1mg kit SUBCUT PRN (15:15)
[2020-09-25] MEDS ORDERED: dextrose 50%-water 50ml dispensing syringe IV PRN ×2 (15:15)
--- NOTE | 2020-09-25 15:58 | NUR ---
At bedside with MD Elda Mann addressed diabetes, need for anticoagulant and tenative discharge plan. Pt and son state understanding.
[2020-09-25] MEDS ORDERED: LORazepam 1 MG tablet PO PRN (16:00)
[2020-09-25] MEDS ORDERED: LORazepam 2 mg/ml vial IV PRN (16:00)
[2020-09-25 18:00] VITALS: BP 144/86
[2020-09-25] MEDS: insulin Lispro (HumaLOG) vial - multi-dose SQ SCH (19:36)
[2020-09-25] MEDS: apixaban 5mg tablet PO SCH (21:12)
[2020-09-25] MEDS: methylPREDNISolone sod succ/PF 40mg inj. IV SCH (21:13)
[2020-09-25] MEDS: insulin glargine (Lantus) pen - multi-dose SQ SCH (21:17)
[2020-09-25 22:00] VITALS: BP 141/83
[2020-09-26] MEDS: ipratropium/albuterol 3ml nebule NEB SCH ×6 (03:00→22:42)
[2020-09-26] MEDS: methadone 5mg tablet PO SCH ×4 (03:13→19:06)
--- NOTE | 2020-09-26 06:27 | NUR ---
Problems reprioritized. Patient report given, questions answered & plan of care reviewed with CUONG Jacobs.
[2020-09-26 06:30] VITALS: BP 138/79
--- NOTE | 2020-09-26 06:31 | NUR ---
Patient in room ORTHO 4011. I have received report from Marta HUTCHINS and had the opportunity to ask questions and assume patient care.
[2020-09-26 07:43] LABS: ALBUMIN 2.9 G/DL (3.4-5.0); ANION GAP 7 (8-16); BLOOD UREA NITROGEN 32 MG/DL (7-18); CALCIUM 8.5 MG/DL (8.5-10.1); CHLORIDE 103 MMOL/L (99-107); CREATININE 0.89 MG/DL (0.60-1.10); GLUCOSE 172 MG/DL (70-104); MAGNESIUM 2.3 MG/DL (1.5-2.4); SODIUM 140 MMOL/L (135-145); TOTAL CARBON DIOXIDE 30.5 MMOL/L (24-32); eGFR 83 ML/MIN
[2020-09-26 07:51] LABS: BASOPHILS % (AUTO) 0 % (0-1); EOSINOPHILS % (AUTO) 0 % (0-6); HEMATOCRIT 38.8 % (42.0-52.0); HEMOGLOBIN 12.5 g/dl (14.0-17.9); LYMPHOCYTES # (AUTO) 0.6 X10'3 (1.1-4.8); LYMPHOCYTES % (AUTO) 5.8 % (21-51); MEAN CORPUSCULAR HEMOGLOBIN 29.4 PG (27.0-31.0); MEAN CORPUSCULAR HGB CONC 32.1 g/dL (33.0-36.5); MEAN CORPUSCULAR VOLUME 91.4 FL (78-98); MEAN PLATELET VOLUME 8.1 FL (7.4-10.4); MONOCYTES # (AUTO) 0.3 X10'3 (0-0.9); NEUTROPHILS # (AUTO) 9.8 X10'3 (1.8-7.7); NEUTROPHILS % (AUTO) 91.2 % (42-75); PLATELET COUNT 189 X10'3 (140-440); RED BLOOD COUNT 4.25 X10'6 (4.70-6.10); RED CELL DISTRIBUTION WIDTH 16.7 % (11.5-14.5); WHITE BLOOD COUNT 10.8 X10'3 (4.5-11.0)
[2020-09-26] MEDS: amiodarone 100mg tablet PO SCH (08:00)
[2020-09-26] MEDS: K and/or MAG REPLACEMENT MC SCH ×2 (08:00→19:23)
[2020-09-26] MEDS: insulin Lispro (HumaLOG) vial - multi-dose SQ SCH ×3 (08:49→19:03)
[2020-09-26] MEDS: CefTRIAXone/D5W-Rocephin 1gm 50 ML IV SCH (08:56)
[2020-09-26] MEDS: busPIRone 5mg tablet PO SCH ×3 (09:01→21:04)
[2020-09-26] MEDS: furosemide 20MG tablet PO SCH (09:01)
[2020-09-26] MEDS: thiamine 100mg tablet PO SCH (09:01)
[2020-09-26] MEDS: folic acid 1mg tablet PO SCH (09:01)
[2020-09-26] MEDS: lactobacillus rhamnosus 10,000 MMU CELLS/CAPSULE PO SCH ×2 (09:01→19:06)
[2020-09-26] MEDS: apixaban 5mg tablet PO SCH ×2 (09:02→19:06)
[2020-09-26] MEDS: duloxetine 30mg CAPSULE.DR PO SCH (09:02)
[2020-09-26] MEDS: carVEDilol 3.125mg tablet PO SCH ×2 (09:03→19:07)
[2020-09-26] MEDS: multivitamins, therapeutics tablet PO SCH (09:03)
[2020-09-26] MEDS: OLANZAPINE 5 MG TABLET PO SCH ×2 (09:03→19:06)
[2020-09-26] MEDS: pantoprazole 40mg Tablet.DR PO SCH ×2 (09:03→19:06)
[2020-09-26] MEDS: lisinopril 2.5mg tablet PO SCH (09:04)
[2020-09-26] MEDS: levoTHYROXINE 25mcg tablet PO SCH (09:04)
[2020-09-26] MEDS: methylPREDNISolone sod succ/PF 40mg inj. IV SCH ×2 (09:04→19:07)
[2020-09-26 10:41] VITALS: BP 133/75
[2020-09-26] MEDS: ondansetron 4mg rapidly disintigrating tab PO PRN (12:41)
--- NOTE | 2020-09-26 13:07 | NUR ---
DM/Nutrition Consults "new DM DX T2DM and low protein levels, supplement?": Pt admit DX etoh and klonopin w/d hx clonazepam addiction and turned to drinking when ran out as well as UGIB r/t etoh/NSAID use esophagitis per MD notes. Pt new T2DM DX this admit A1C 6.7 appropriate given geriatric age and no need for DM MNT ed at this time. Glu 191 receiving solumedrol this admit. PO mostly 75-100% avg carb controlled diet fluctuating w/ noted diarrhea 09/23 likely impacting prior PO. Overall, likely meeting minimum needs. Pt DX likely to impact ALB; no need for ONS at this time. Receiving thiamin, folic, MVI for etoh hx. LBM 09/23. Will continue to monitor for additional protein/kcal needs this admit. Rec: 1. continue carb controlled diet 2. thiamin, folic, MVI for etoh hx 3. bowel care per rx 4. scaled wt this admit Addendum: 09/26/20 at [address] Amended: Links added.
[2020-09-26 18:00] VITALS: BP 138/81
--- NOTE | 2020-09-26 18:27 | NUR ---
Problems reprioritized. Patient report given, questions answered & plan of care reviewed with Ernestine HUTCHINS.
[2020-09-26] MEDS: docusate sod 100mg capsule PO SCH (19:06)
[2020-09-26] MEDS: insulin glargine (Lantus) pen - multi-dose SQ SCH (21:09)
[2020-09-26] MEDS: LORazepam 0.5 MG tablet PO PRN (21:10)
[2020-09-26 22:00] VITALS: BP 136/83
[2020-09-27] MEDS: methadone 5mg tablet PO SCH ×3 (01:50→13:29)
[2020-09-27] MEDS: ipratropium/albuterol 3ml nebule NEB SCH ×4 (02:50→15:26)
[2020-09-27 05:26] VITALS: BP 144/87
--- NOTE | 2020-09-27 06:11 | NUR ---
Problems reprioritized. Patient report given, questions answered & plan of care reviewed with alanis Peters.
--- NOTE | 2020-09-27 06:24 | NUR ---
Problems reprioritized. Patient report given, questions answered & plan of care reviewed with CUONG COLEMAN AND CUONG CERON.
--- NOTE | 2020-09-27 06:30 | NUR ---
Patient in room ORTHO 4011. I have received report from Ernestine HUTCHINS and had the opportunity to ask questions and assume patient care.
[2020-09-27 07:18] LABS: BASOPHILS % (AUTO) 0.1 % (0-1); EOSINOPHILS % (AUTO) 0 % (0-6); HEMATOCRIT 39.6 % (42.0-52.0); HEMOGLOBIN 12.7 g/dl (14.0-17.9); LYMPHOCYTES # (AUTO) 0.8 X10'3 (1.1-4.8); LYMPHOCYTES % (AUTO) 6.4 % (21-51); MEAN CORPUSCULAR HGB CONC 32.1 g/dL (33.0-36.5); MEAN CORPUSCULAR VOLUME 90.3 FL (78-98); MONOCYTES # (AUTO) 0.4 X10'3 (0-0.9); MONOCYTES % (AUTO) 3.3 % (2-12); NEUTROPHILS # (AUTO) 11.7 X10'3 (1.8-7.7); NEUTROPHILS % (AUTO) 90.2 % (42-75); PLATELET COUNT 231 X10'3 (140-440); RED BLOOD COUNT 4.38 X10'6 (4.70-6.10); RED CELL DISTRIBUTION WIDTH 17.2 % (11.5-14.5)
[2020-09-27] MEDS: methylPREDNISolone sod succ/PF 40mg inj. IV SCH (07:45)
[2020-09-27] MEDS: CefTRIAXone/D5W-Rocephin 1gm 50 ML IV SCH (07:46)
[2020-09-27] MEDS: K and/or MAG REPLACEMENT MC SCH (08:00)
[2020-09-27] MEDS: insulin Lispro (HumaLOG) vial - multi-dose SQ SCH ×2 (09:14→13:22)
[2020-09-27] MEDS: ondansetron 4mg rapidly disintigrating tab PO PRN (09:19)
[2020-09-27] MEDS: docusate sod 100mg capsule PO SCH (09:27)
[2020-09-27] MEDS: pantoprazole 40mg Tablet.DR PO SCH (09:30)
[2020-09-27] MEDS: lactobacillus rhamnosus 10,000 MMU CELLS/CAPSULE PO SCH (09:32)
[2020-09-27] MEDS: levoTHYROXINE 25mcg tablet PO SCH (09:34)
[2020-09-27] MEDS: lisinopril 2.5mg tablet PO SCH (09:40)
[2020-09-27] MEDS: OLANZAPINE 5 MG TABLET PO SCH (09:41)
[2020-09-27] MEDS: furosemide 20MG tablet PO SCH (09:42)
[2020-09-27] MEDS: multivitamins, therapeutics tablet PO SCH (09:44)
[2020-09-27] MEDS: apixaban 5mg tablet PO SCH (09:47)
[2020-09-27] MEDS: folic acid 1mg tablet PO SCH (09:51)
[2020-09-27] MEDS: thiamine 100mg tablet PO SCH (09:52)
[2020-09-27] MEDS: busPIRone 5mg tablet PO SCH ×2 (09:53→13:28)
[2020-09-27] MEDS: carVEDilol 3.125mg tablet PO SCH (09:54)
[2020-09-27] MEDS: duloxetine 30mg CAPSULE.DR PO SCH (09:55)
[2020-09-27 10:00] VITALS: BP 141/73
[2020-09-27] MEDS: amiodarone 100mg tablet PO SCH (10:02)
--- NOTE | 2020-09-27 11:00 | NUR ---
spoke with Dr Morales states he does not want to order additional pain meds other than what pt has that is scheduled. Will continue to monitor.
--- NOTE | 2020-09-27 16:35 | NUR ---
Pt stable and appropriate for transfer to [facility]. PIV d/c'd cannula intact. Tele monitor d/c'd. Reviewed with pt and son Narayan all transfer instructions. Report phoned to [facility], spoke with Za MIKE. Pt and receiving FIRE PRODUCTION OPERATOR given opportunity to ask questions, answers provided with FIRE PRODUCTION OPERATOR and pt verbalizing understanding. Pt taken to [facility] via [facility] with pt stating he had all personal belongings.
--- NOTE | 2020-09-27 16:44 | NUR ---
acting as nursing program manager i reviewed nursing assoc charting
--- NOTE | 2020-09-27 19:00 | NUR ---
Phoned [facility]PA spoke with Dayanara ARNETT, she will give message to [employer] LEAD TEACHER caring for pt to pass on message to family that pt had home meds stored in Pharmacy here at [facility] and a family member can come to pick those up. Attempted phone call to pt's son Narayan, no answer, unable to leave message.
== END 2020-09-27 16:45 | DRG 378 ==
LOC: ER 11:48 → ED HOLD 15:58 → ORTHO 4S 18:40
PROVIDERS: ADMIT Family Medicine; ATTEND Family Medicine
PROC: 0DB68ZX Excision of Stomach, Via Natural or Artificial Opening Endoscopic, Diagnostic (ICD-10-PCS; principal; 2020-09-22)
DX: K29.21 Alcoholic gastritis with bleeding (principal); I50.22 Chronic systolic (congestive) heart failure; I42.9 Cardiomyopathy, unspecified; F13.20 Sedative, hypnotic or anxiolytic dependence, uncomplicated; F10.920 Alcohol use, unspecified with intoxication, uncomplicated; K20.91 Esophagitis, unspecified with bleeding; E87.5 Hyperkalemia; K20.90 Esophagitis, unspecified without bleeding; I48.91 Unspecified atrial fibrillation; J44.9 Chronic obstructive pulmonary disease, unspecified; G89.29 Other chronic pain; G47.33 Obstructive sleep apnea (adult) (pediatric); K44.9 Diaphragmatic hernia without obstruction or gangrene; E66.01 Morbid (severe) obesity due to excess calories; D50.0 Iron deficiency anemia secondary to blood loss (chronic); K57.30 Diverticulosis of large intestine without perforation or abscess without bleeding; K29.80 Duodenitis without bleeding; M54.9 Dorsalgia, unspecified; Y90.4 Blood alcohol level of 80-99 mg/100 ml; E11.9 Type 2 diabetes mellitus without complications; F32.9 Major depressive disorder, single episode, unspecified; F41.1 Generalized anxiety disorder; Z87.891 Personal history of nicotine dependence; Z86.711 Personal history of pulmonary embolism; Z99.81 Dependence on supplemental oxygen; Z68.31 Body mass index [BMI] 31.0-31.9, adult
CPT/HCPCS: 36415; 43239; 70450; 71045; 74177; 80048; 80053; 80320; 82272; 82948; 83690; 83735; 85025; 85027; 85610; 85730; 86885; 86900; 86901; 87081; 93005; 94640; 94760; 97110; 97116; 97162; 97530; 99152; 99285; A4620; C9113; G0378; J0696; J0780; J1815; J2060; J2250; J2920; J2930; J3010; J3411; J3490; J7030; J7040

== ENCOUNTER 2021-01-08 12:44 | Emergency (ER) | payer MEDICARE ==
[~2021-01-08] VITALS: Ht 177.8 cm; Wt 91.6 kg
[~2021-01-08 12:44] MED LIST changes: -BUDE0.5A11 NEB; +CARV3.122 PO; -CLON-528 PO; +CLON0.5T23 PO; -COR3.125T PO; -FLO0.4C PO; -HYDR-3965 PO; -LORA-269 PO; -ORPH100T2 PO
--- NOTE | 2021-01-08 13:00 | NUR ---
DR FRANKS NOTIFIED OF TRAUMA LEVEL II AT [address]BAL [address]
--- NOTE | 2021-01-08 14:05 | NUR ---
call from prince Busch, [phone]
[2021-01-08] MEDS ORDERED: normal saline 1000ML IV soln IVB ONE ×2 (14:20→15:10)
[2021-01-08 14:42] LABS: BASOPHILS # (AUTO) 0.1 X10'3 (0-0.2); BASOPHILS % (AUTO) 0.6 % (0-1); EOSINOPHILS # (AUTO) 0.1 X10'3 (0-0.9); EOSINOPHILS % (AUTO) 1.1 % (0-6); HEMOGLOBIN 11.1 g/dl (14.0-17.9); LYMPHOCYTES # (AUTO) 1.8 X10'3 (1.1-4.8); LYMPHOCYTES % (AUTO) 15.1 % (21-51); MEAN CORPUSCULAR HEMOGLOBIN 29.3 PG (27.0-31.0); MEAN CORPUSCULAR HGB CONC 31.8 g/dL (33.0-36.5); MEAN CORPUSCULAR VOLUME 92.4 FL (78-98); MEAN PLATELET VOLUME 7.6 FL (7.4-10.4); MONOCYTES # (AUTO) 1.1 X10'3 (0-0.9); MONOCYTES % (AUTO) 9.6 % (2-12); NEUTROPHILS # (AUTO) 8.8 X10'3 (1.8-7.7); NEUTROPHILS % (AUTO) 73.6 % (42-75); PLATELET COUNT 327 X10'3 (140-440); RED BLOOD COUNT 3.79 X10'6 (4.70-6.10); RED CELL DISTRIBUTION WIDTH 17.4 % (11.5-14.5)
[2021-01-08 14:54] LABS: ALANINE AMINOTRANSFERASE 11 U/L (12-78); ALBUMIN 3.5 G/DL (3.4-5.0); ALKALINE PHOSPHATASE 66 IU/L (46-116); ANION GAP 9 (8-16); ASPARTATE AMINO TRANSFERASE 14 U/L (10-37); BILIRUBIN,TOTAL 0.5 MG/DL (0.1-1.0); BLOOD UREA NITROGEN 25 MG/DL (7-18); BUN/CREATININE RATIO 30.1 (5.4-32.0); CALCIUM 8.9 MG/DL (8.5-10.1); CHLORIDE 102 MMOL/L (99-107); CREATININE 0.83 MG/DL (0.60-1.10); GLUCOSE 116 MG/DL (70-104); POTASSIUM 4.4 MMOL/L (3.5-5.1); SODIUM 135 MMOL/L (135-145); TOTAL CARBON DIOXIDE 24.1 MMOL/L (24-32); TOTAL PROTEIN 6.9 G/DL (6.4-8.2); eGFR 90 ML/MIN
[2021-01-08 15:05] LABS: CLARITY,URINE CLEAR (Clear); COLOR,URINE YELLOW (Yellow); GLUCOSE, URINE NEGATIVE (Neg); KETONES,URINE NEGATIVE (Neg); LEUKOCYTE ESTERASE ,URINE NEGATIVE (Neg); NITRITES, URINE NEGATIVE (Neg); OCCULT BLOOD,URINE NEGATIVE (Neg); PH,URINE 5.5 (4.8-8.0); PROTEIN,URINE NEGATIVE (Neg); UROBILINOGEN,URINE 0.2 E.U/dL (0.2-1.0)
[2021-01-08 15:13] LABS: UA COLLECTION TYPE VOIDED
[2021-01-08] MEDS ORDERED: ibuprofen 200mg tablet PO ONE (16:20)
[2021-01-08 17:13] VITALS: BP 148/69
== END 2021-01-08 17:20 | disposition home or self-care (01) ==
LOC: ER 12:45
DX: R42 Dizziness and giddiness (principal); H53.2 Diplopia; R11.0 Nausea; E86.0 Dehydration; S09.90XD Unspecified injury of head, subsequent encounter; I48.91 Unspecified atrial fibrillation; I50.9 Heart failure, unspecified; J44.9 Chronic obstructive pulmonary disease, unspecified; G89.29 Other chronic pain; Z87.01 Personal history of pneumonia (recurrent); Z95.0 Presence of cardiac pacemaker; Z87.891 Personal history of nicotine dependence; Z79.899 Other long term (current) drug therapy; W19.XXXD Unspecified fall, subsequent encounter
CPT/HCPCS: 36415; 70450; 80053; 81003; 85025; 93005; 99285; J7030

== ENCOUNTER 2021-06-07 23:24 | Emergency (ER) | payer MEDICARE, OTHER ==
[~2021-06-07] VITALS: Ht 175.3 cm; Wt 69.0 kg
[~2021-06-07 23:24] MED LIST changes: +LISI2.5T14 PO; -LISI2.5T2 PO; +METH-806 PO; -METH5TAB2 PO
[2021-06-08] MEDS: diazepam 5mg tablet PO ONE (01:25)
[2021-06-08 01:27] VITALS: BP 155/84
== END 2021-06-08 02:28 | disposition home or self-care (01) ==
LOC: ER 23:24
DX: M54.9 Dorsalgia, unspecified (principal); G89.29 Other chronic pain; I48.91 Unspecified atrial fibrillation; J44.9 Chronic obstructive pulmonary disease, unspecified; I11.0 Hypertensive heart disease with heart failure; I50.9 Heart failure, unspecified; F15.90 Other stimulant use, unspecified, uncomplicated; Z87.01 Personal history of pneumonia (recurrent); Z95.0 Presence of cardiac pacemaker; Z59.00 Homelessness unspecified; Z79.899 Other long term (current) drug therapy; Z79.01 Long term (current) use of anticoagulants
CPT/HCPCS: 99284